=== PATIENT | female | born 1960 | race Asian ===

== ENCOUNTER 2018-09-05 17:30 | Emergency (ER) | payer OTHER ==
[2018-09-05] MEDS: HYDROCODONE/APAP (10/325) TAB PO (18:58)
[2018-09-05] MEDS: ONDANSETRON (ODT) 4 MG TAB ODT (18:58)
== END 2018-09-05 19:51 | disposition home or self-care (01) ==
LOC: E/R 17:30
DX: M79.89 Other specified soft tissue disorders (principal); R60.0 Localized edema; Z85.3 Personal history of malignant neoplasm of breast
CPT/HCPCS: 93971; 99284-25